=== PATIENT | male | born 1960 | race Caucasian/White ===

== ENCOUNTER 2023-01-12 17:20 | Inpatient (IN) ==
[2023-01-12] MEDS ORDERED: Acetaminophen IV 1 GM/100ML 1,000 MG/100 ML BAG IV ONE (18:00)
[2023-01-12] MEDS ORDERED: Azithromycin 500 mg/250 ml NS 500 MG/250 ML BAG IVPB ONE (18:31)
[2023-01-12] MEDS ORDERED: cefTRIAXone 1 gm/50 mL D5W 1 GM/50 ML BAG IV ONE (18:31)
[2023-01-12] MEDS ORDERED: NS 0.9% 1000 ml BAG 1,000 ML IV ONE (18:33)
[2023-01-12 18:42] LABS: Venous Bicarbonate HCO3 16.6 mmol/L (24-28)
[2023-01-12 18:43] LABS: ABS Lymphocytes 0.5 10^3/uL (1.0-4.8); ABS Monocytes 1.1 10^3/uL (0.0-1.1); ABS Nucleated RBC 0.01 10^3/ul; Hematocrit 43.6 % (38-53); Hemoglobin 14.7 g/dL (13.2-16.3); Lymphocyte % 5.1 %; Mean Corpuscular Hemoglobin 28.9 pg (27-33); Mean Corpuscular Hgb Conc 33.8 g/dL (31-36); Mean Corpuscular Volume 85.6 fL (80-97); Mean Platelet Volume 6.9 fL (7.5-11.2); Nucleated Red Blood Cells % 0.1 /100 WBC (0.0-0.4); Platelet Count 257 10^3/uL (150-450); Red Blood Count 5.09 10^6/uL (4.06-5.63); Red Cell Distribution Width 14.2 % (12-17); White Blood Count 10.6 10^3/uL (3.6-10.2)
[2023-01-12] MEDS ORDERED: Albuterol/Ipratropium NEB.SOL (2.5/0.5 MG) 3 ML NEB.SOLN INH ONE (18:55)
[2023-01-12 18:56] LABS: INR 1.29 (0.88-1.18)
[2023-01-12 19:02] LABS: Creatinine, Serum 1.03 mg/dL (0.67-1.17); Potassium 3.1 mmol/L (3.5-5.0)
[2023-01-12 19:03] LABS: Albumin 4.2 g/dL (3.2-5.2); Albumin/Globulin Ratio 1.1 (1-3); Calcium 9.1 mg/dL (8.6-10.3); Magnesium 2.2 mg/dL (1.9-2.7); Total Bilirubin 0.6 mg/dL (0.2-1.0); Total Protein 8.2 g/dL (6.4-8.9); eGFR CKD-EPI 82.1 (>60)
[2023-01-12] MEDS ORDERED: Furosemide 20 mg/2 ml IV VIAL IV SLOW PU ONE (19:09)
[2023-01-12] MEDS ORDERED: Iodixanol (CONTRAST) 320 MG/ML 100 ML SDV IV ONE (19:29)
[2023-01-12 19:43] LABS: PCO2 Arterial 22 mmHg (35-45); PO2 Arterial 82 mmHg (80-100)
[2023-01-12 20:26] LABS: High Sensitivity Troponin 1 Hr 64 pg/mL (<20)
[2023-01-12] MEDS ORDERED: Morphine 4 MG/ML VIAL (1 ml) IV ONE (21:03)
[2023-01-12] MEDS: Enoxaparin 40 MG/0.4 ML SYR SUBCUT SCH (21:41)
[2023-01-12] MEDS: KCL 20 MEQ/100 ML IVPREMIX 20 MEQ/100 ML BAG IV SCH (21:42)
[2023-01-12] MEDS: Morphine ER 30 mg TAB ** extended release PO SCH (21:46)
[2023-01-12 22:28] LABS: Osmolality Serum 295 mOsm/kg (275-295)
[2023-01-12 23:14] LABS: Urine Osmo 501 mOsm/kg (150-1150)
[2023-01-13] MEDS: KCL 20 MEQ/100 ML IVPREMIX 20 MEQ/100 ML BAG IV SCH (00:03)
[2023-01-13] MEDS ORDERED: Lactated Ringers 1000 ml BAG IV.FLUID IV ONE (01:23)
[2023-01-13] MEDS ORDERED: Dextrose 50% Syringe 50 ml 25 GM/50 ML SYRINGE IV PUSH PRN (02:50)
[2023-01-13] MEDS ORDERED: Ondansetron 4 mg VIAL 2 MG/ML 2 ml VIAL IV PRN (04:29)
[2023-01-13 05:39] LABS: Hematocrit 37.7 % (38-53); Hemoglobin 12.8 g/dL (13.2-16.3); Mean Corpuscular Hemoglobin 29.1 pg (27-33); Mean Corpuscular Volume 85.5 fL (80-97); Mean Platelet Volume 6.7 fL (7.5-11.2); Platelet Count 212 10^3/uL (150-450); Red Blood Count 4.41 10^6/uL (4.06-5.63); Red Cell Distribution Width 14.1 % (12-17); White Blood Count 9.9 10^3/uL (3.6-10.2)
[2023-01-13 05:57] LABS: Calcium 7.8 mg/dL (8.6-10.3); Creatinine, Serum 0.91 mg/dL (0.67-1.17); eGFR CKD-EPI 95.3 (>60)
[2023-01-13 05:59] LABS: Potassium 3.4 mmol/L (3.5-5.0)
[2023-01-13 06:39] LABS: ABS Lymphocytes 0.6 10^3/uL (1.0-4.8); ABS Monocytes 1.4 10^3/uL (0.0-1.1); ABS Neutrophils 7.8 10^3/uL (1.5-7.6); ABS Nucleated RBC 0.01 10^3/ul; Lymphocyte % 6.3 %; Nucleated Red Blood Cells % 0.1 /100 WBC (0.0-0.4)
[2023-01-13] MEDS: Empagliflozin 25 MG TAB PO SCH (08:17)
[2023-01-13] MEDS: Morphine ER 30 mg TAB ** extended release PO SCH ×3 (08:17→21:12)
[2023-01-13] MEDS ORDERED: Potassium Chlor 20 meq TAB.ER PO ONE ×2 (08:43→12:00)
[2023-01-13 10:07] LABS: Urine Creatinine Concentration 31.34 mg/dL (20.00-370.00)
[2023-01-13 10:15] LABS: Urine Appearance Clear; Urine Bilirubin Negative (Negative); Urine Blood 2+ (Negative); Urine Color Yellow; Urine Glucose 3+(>=500 mg/dL) (Negative); Urine Ketones 2+ (Negative); Urine Nitrite Negative (Negative); Urine Protein Negative (Negative); Urine Specific Gravity 1.026 (1.002-1.030); Urine Urobilinogen Negative (Negative)
[2023-01-13 10:31] LABS: Urine Bacteria 1+ (Absent); Urine Granular Casts Present (Absent); Urine Red Blood Cell 1+(3-5/hpf) (Absent); Urine Squamous Epithelial Cell Present (Absent); Urine White Blood Cell Absent (Absent)
[2023-01-13] MEDS ORDERED: Lactated Ringers 1000 ml BAG 1,000 ML IV ONE (13:58)
[2023-01-13] MEDS ORDERED: Sulfur Hexaflouride MICROSPHR 25 MG VIAL ONE (14:39)
[2023-01-13] MEDS: Morphine ORAL.SOLN 10 mg 2 mg/ml UDC 5 ml (10 mg) PO PRN (16:24)
[2023-01-13] MEDS: Azithromycin 500 mg/250 ml NS 500 MG/250 ML BAG IVPB SCH (18:32)
[2023-01-13] MEDS: cefTRIAXone 1 gm/50 mL D5W 1 GM/50 ML BAG IV SCH (21:11)
[2023-01-13] MEDS: Enoxaparin 40 MG/0.4 ML SYR SUBCUT SCH (21:12)
[2023-01-14 06:08] LABS: ABS Lymphocytes 0.5 10^3/uL (1.0-4.8); ABS Monocytes 1.2 10^3/uL (0.0-1.1); ABS Neutrophils 5.5 10^3/uL (1.5-7.6); ABS Nucleated RBC 0.01 10^3/ul; Hematocrit 39.4 % (38-53); Lymphocyte % 7.4 %; Mean Corpuscular Hemoglobin 28.7 pg (27-33); Mean Corpuscular Volume 87.1 fL (80-97); Mean Platelet Volume 6.8 fL (7.5-11.2); Nucleated Red Blood Cells % 0.1 /100 WBC (0.0-0.4); Platelet Count 201 10^3/uL (150-450); Red Blood Count 4.53 10^6/uL (4.06-5.63); Red Cell Distribution Width 14.4 % (12-17); White Blood Count 7.2 10^3/uL (3.6-10.2)
[2023-01-14 06:14] LABS: Calcium 8.2 mg/dL (8.6-10.3); Creatinine, Serum 0.75 mg/dL (0.67-1.17); Potassium 3.6 mmol/L (3.5-5.0)
[2023-01-14] MEDS: Morphine ER 30 mg TAB ** extended release PO SCH ×3 (08:12→20:31)
[2023-01-14] MEDS: Morphine ORAL.SOLN 10 mg 2 mg/ml UDC 5 ml (10 mg) PO PRN ×3 (08:21→21:22)
[2023-01-14] MEDS: Empagliflozin 25 MG TAB PO SCH (08:24)
[2023-01-14] MEDS: Azithromycin 500 mg/250 ml NS 500 MG/250 ML BAG IVPB SCH (17:48)
[2023-01-14] MEDS: cefTRIAXone 1 gm/50 mL D5W 1 GM/50 ML BAG IV SCH (20:28)
[2023-01-14] MEDS: Enoxaparin 40 MG/0.4 ML SYR SUBCUT SCH (20:32)
[2023-01-15 06:44] LABS: Hematocrit 41.7 % (38-53); Hemoglobin 14.1 g/dL (13.2-16.3); Mean Corpuscular Hemoglobin 28.9 pg (27-33); Mean Corpuscular Hgb Conc 33.7 g/dL (31-36); Mean Platelet Volume 6.7 fL (7.5-11.2); Platelet Count 253 10^3/uL (150-450); Red Blood Count 4.86 10^6/uL (4.06-5.63); Red Cell Distribution Width 14.5 % (12-17); White Blood Count 7.1 10^3/uL (3.6-10.2)
[2023-01-15 06:58] LABS: Calcium 8.6 mg/dL (8.6-10.3); Creatinine, Serum 0.71 mg/dL (0.67-1.17); Potassium 3.8 mmol/L (3.5-5.0); eGFR CKD-EPI 103.7 (>60)
[2023-01-15 07:42] LABS: ABS Lymphocytes 0.8 10^3/uL (1.0-4.8); ABS Monocytes 1.1 10^3/uL (0.0-1.1); ABS Neutrophils 5.2 10^3/uL (1.5-7.6); ABS Nucleated RBC 0.01 10^3/ul; Eosinophil % 0.1 %; Lymphocyte % 11.7 %; Nucleated Red Blood Cells % 0.1 /100 WBC (0.0-0.4)
[2023-01-15] MEDS: Morphine ER 30 mg TAB ** extended release PO SCH ×3 (09:57→21:39)
[2023-01-15] MEDS: Empagliflozin 25 MG TAB PO SCH (09:59)
[2023-01-15] MEDS: Morphine ORAL.SOLN 10 mg 2 mg/ml UDC 5 ml (10 mg) PO PRN ×2 (10:00→16:10)
[2023-01-15] MEDS: cefTRIAXone 1 gm/50 mL D5W 1 GM/50 ML BAG IV SCH (21:35)
[2023-01-15] MEDS: Enoxaparin 40 MG/0.4 ML SYR SUBCUT SCH (21:42)
[2023-01-16] MEDS: Morphine ORAL.SOLN 10 mg 2 mg/ml UDC 5 ml (10 mg) PO PRN ×3 (00:27→21:19)
[2023-01-16 06:06] LABS: Hematocrit 39.7 % (38-53); Hemoglobin 13.4 g/dL (13.2-16.3); Mean Corpuscular Hemoglobin 29.1 pg (27-33); Mean Corpuscular Hgb Conc 33.8 g/dL (31-36); Mean Platelet Volume 6.7 fL (7.5-11.2); Platelet Count 221 10^3/uL (150-450); Red Blood Count 4.62 10^6/uL (4.06-5.63); Red Cell Distribution Width 14.6 % (12-17); White Blood Count 6.5 10^3/uL (3.6-10.2)
[2023-01-16 06:23] LABS: Calcium 8.5 mg/dL (8.6-10.3); Creatinine, Serum 0.63 mg/dL (0.67-1.17); eGFR CKD-EPI 107.5 (>60)
[2023-01-16 07:54] LABS: ABS Monocytes 1.3 10^3/uL (0.0-1.1); ABS Neutrophils 4.2 10^3/uL (1.5-7.6); ABS Nucleated RBC 0.01 10^3/ul; Eosinophil % 0.2 %; Lymphocyte % 14.8 %; Nucleated Red Blood Cells % 0.2 /100 WBC (0.0-0.4)
[2023-01-16] MEDS: Morphine ER 30 mg TAB ** extended release PO SCH ×3 (08:38→21:01)
[2023-01-16] MEDS: Empagliflozin 25 MG TAB PO SCH (08:39)
[2023-01-16] MEDS ORDERED: Metoprolol Tartrate 5 mg VIAL 5 ml VIAL (1 mg/ml) IV ONE ×2 (11:35→21:17)
[2023-01-16] MEDS: cefTRIAXone 1 gm/50 mL D5W 1 GM/50 ML BAG IV SCH (21:00)
[2023-01-17 06:19] LABS: Hematocrit 41.4 % (38-53); Hemoglobin 13.8 g/dL (13.2-16.3); Mean Corpuscular Hemoglobin 28.9 pg (27-33); Mean Corpuscular Hgb Conc 33.5 g/dL (31-36); Mean Corpuscular Volume 86.2 fL (80-97); Mean Platelet Volume 6.9 fL (7.5-11.2); Platelet Count 247 10^3/uL (150-450); Red Cell Distribution Width 14.8 % (12-17)
[2023-01-17 06:20] LABS: Calcium 8.9 mg/dL (8.6-10.3); Magnesium 1.9 mg/dL (1.9-2.7); Potassium 4.1 mmol/L (3.5-5.0)
[2023-01-17 06:26] LABS: Creatinine, Serum 0.59 mg/dL (0.67-1.17); eGFR CKD-EPI 109.7 (>60)
[2023-01-17 06:39] LABS: ABS Lymphocytes 1.5 10^3/uL (1.0-4.8); ABS Neutrophils 4.4 10^3/uL (1.5-7.6); ABS Nucleated RBC 0.01 10^3/ul; Eosinophil % 0.5 %; Lymphocyte % 22.2 %; Nucleated Red Blood Cells % 0.1 /100 WBC (0.0-0.4)
[2023-01-17 06:40] LABS: RBC Morphology Normal (Normal)
[2023-01-17] MEDS: Morphine ORAL.SOLN 10 mg 2 mg/ml UDC 5 ml (10 mg) PO PRN (08:05)
[2023-01-17] MEDS: Empagliflozin 25 MG TAB PO SCH (08:06)
[2023-01-17] MEDS: Morphine ER 30 mg TAB ** extended release PO SCH ×3 (08:06→21:37)
[2023-01-17] MEDS ORDERED: Metoprolol Tartrate 5 mg VIAL 5 ml VIAL (1 mg/ml) IV ONE (10:52)
[2023-01-17] MEDS: Digoxin IV 0.5 MG/2 ML AMP (0.25 MG/ML) IV SLOW PU SCH ×2 (18:00→23:52)
[2023-01-17] MEDS: Latanoprost 0.005% 2.5 ml BTL BOTH EYES SCH (21:37)
[2023-01-17] MEDS: CMCS:Dorzolamide/Timolol OPTH (NF) 10 ML BOT BOTH EYES SCH (21:39)
[2023-01-17] MEDS: PTO:Brimonidine P 0.15%(NF) OPH SOL 5 ML BTL BOTH EYES SCH (21:42)
[2023-01-18] MEDS: Digoxin IV 0.5 MG/2 ML AMP (0.25 MG/ML) IV SLOW PU SCH (05:27)
[2023-01-18 06:39] LABS: Hematocrit 38.9 % (38-53); Hemoglobin 12.8 g/dL (13.2-16.3); Mean Corpuscular Hemoglobin 28.7 pg (27-33); Mean Corpuscular Hgb Conc 32.9 g/dL (31-36); Mean Corpuscular Volume 87.2 fL (80-97); Mean Platelet Volume 6.7 fL (7.5-11.2); Platelet Count 260 10^3/uL (150-450); Red Blood Count 4.46 10^6/uL (4.06-5.63); Red Cell Distribution Width 14.4 % (12-17); White Blood Count 7.4 10^3/uL (3.6-10.2)
[2023-01-18 06:47] LABS: Calcium 8.5 mg/dL (8.6-10.3); Creatinine, Serum 0.38 mg/dL (0.67-1.17); Potassium 4.2 mmol/L (3.5-5.0); eGFR CKD-EPI 125.3 (>60)
[2023-01-18] MEDS: CMCS:Dorzolamide/Timolol OPTH (NF) 10 ML BOT BOTH EYES SCH ×2 (08:11→20:55)
[2023-01-18] MEDS: Empagliflozin 25 MG TAB PO SCH (08:12)
[2023-01-18] MEDS: PTO:Brimonidine P 0.15%(NF) OPH SOL 5 ML BTL BOTH EYES SCH ×3 (08:12→20:59)
[2023-01-18] MEDS: Morphine ER 30 mg TAB ** extended release PO SCH ×3 (10:16→20:57)
[2023-01-18] MEDS: Morphine ORAL.SOLN 10 mg 2 mg/ml UDC 5 ml (10 mg) PO PRN ×2 (10:17→16:26)
[2023-01-18] MEDS ORDERED: Digoxin IV 0.5 MG/2 ML AMP (0.25 MG/ML) IV SLOW PU ONE (13:13)
[2023-01-18] MEDS ORDERED: Digoxin IV 0.5 MG/2 ML AMP (0.25 MG/ML) ONE (13:17)
[2023-01-18 16:52] LABS: C Reactive Protein 70.77 mg/L (<8.01)
[2023-01-18] MEDS ORDERED: Zosyn per Pharmacy NOTE FOLLOW UP SCH (17:00)
[2023-01-18] MEDS ORDERED: ZOSYN 3.375 GM x ONE DOSE over 30 miuntes IV (17:00)
[2023-01-18] MEDS: Latanoprost 0.005% 2.5 ml BTL BOTH EYES SCH (21:00)
[2023-01-18] MEDS: ZOSYN 3.375 GM Q8H per EXTENDED INFUSION IV SCH (22:36)
[2023-01-19] MEDS: ZOSYN 3.375 GM Q8H per EXTENDED INFUSION IV SCH ×3 (06:15→22:01)
[2023-01-19 06:53] LABS: Hematocrit 40.1 % (38-53); Hemoglobin 13.5 g/dL (13.2-16.3); Mean Corpuscular Hemoglobin 29.1 pg (27-33); Mean Corpuscular Hgb Conc 33.6 g/dL (31-36); Mean Corpuscular Volume 86.5 fL (80-97); Mean Platelet Volume 6.5 fL (7.5-11.2); Platelet Count 299 10^3/uL (150-450); Red Blood Count 4.64 10^6/uL (4.06-5.63); Red Cell Distribution Width 14.2 % (12-17); White Blood Count 7.5 10^3/uL (3.6-10.2)
[2023-01-19 07:09] LABS: Calcium 8.9 mg/dL (8.6-10.3); Creatinine, Serum 0.52 mg/dL (0.67-1.17); Digoxin 0.6 ng/ml (0.8-2.0); Magnesium 1.8 mg/dL (1.9-2.7); Potassium 4.3 mmol/L (3.5-5.0)
[2023-01-19] MEDS ORDERED: Magnesium Sulfate 2 gm BAG 2 GM/50 ML BAG IVPB ONE (07:18)
[2023-01-19 07:52] LABS: ABS Eosinophils 0.1 10^3/uL (0.0-0.5); ABS Lymphocytes 1.5 10^3/uL (1.0-4.8); ABS Monocytes 0.7 10^3/uL (0.0-1.1); ABS Neutrophils 5.1 10^3/uL (1.5-7.6); ABS Nucleated RBC 0.02 10^3/ul; Eosinophil % 1.9 %; Lymphocyte % 20.4 %; Nucleated Red Blood Cells % 0.3 /100 WBC (0.0-0.4)
[2023-01-19] MEDS: Morphine ER 30 mg TAB ** extended release PO SCH ×3 (09:53→21:37)
[2023-01-19] MEDS: Empagliflozin 25 MG TAB PO SCH (10:07)
[2023-01-19] MEDS: PTO:Brimonidine P 0.15%(NF) OPH SOL 5 ML BTL BOTH EYES SCH ×3 (10:07→21:40)
[2023-01-19] MEDS: CMCS:Dorzolamide/Timolol OPTH (NF) 10 ML BOT BOTH EYES SCH ×2 (10:12→21:53)
[2023-01-19] MEDS: Morphine ORAL.SOLN 10 mg 2 mg/ml UDC 5 ml (10 mg) PO PRN (15:23)
[2023-01-19] MEDS: Latanoprost 0.005% 2.5 ml BTL BOTH EYES SCH (21:31)
[2023-01-20] MEDS: ZOSYN 3.375 GM Q8H per EXTENDED INFUSION IV SCH ×2 (06:02→13:55)
[2023-01-20 06:12] LABS: Hematocrit 40.4 % (38-53); Hemoglobin 13.6 g/dL (13.2-16.3); Mean Corpuscular Hemoglobin 28.9 pg (27-33); Mean Corpuscular Hgb Conc 33.7 g/dL (31-36); Mean Corpuscular Volume 85.9 fL (80-97); Mean Platelet Volume 6.5 fL (7.5-11.2); Platelet Count 280 10^3/uL (150-450); Red Cell Distribution Width 14.6 % (12-17); White Blood Count 6.7 10^3/uL (3.6-10.2)
[2023-01-20 06:23] LABS: Calcium 8.8 mg/dL (8.6-10.3); Potassium 4.2 mmol/L (3.5-5.0)
[2023-01-20 06:29] LABS: Creatinine, Serum 0.54 mg/dL (0.67-1.17); eGFR CKD-EPI 112.7 (>60)
[2023-01-20 06:48] LABS: ABS Eosinophils 0.1 10^3/uL (0.0-0.5); ABS Lymphocytes 1.5 10^3/uL (1.0-4.8); ABS Monocytes 0.8 10^3/uL (0.0-1.1); ABS Neutrophils 4.3 10^3/uL (1.5-7.6); ABS Nucleated RBC 0.02 10^3/ul; Eosinophil % 1.9 %; Lymphocyte % 22.6 %; Nucleated Red Blood Cells % 0.2 /100 WBC (0.0-0.4)
[2023-01-20] MEDS: PTO:Brimonidine P 0.15%(NF) OPH SOL 5 ML BTL BOTH EYES SCH ×2 (09:05→13:55)
[2023-01-20] MEDS: CMCS:Dorzolamide/Timolol OPTH (NF) 10 ML BOT BOTH EYES SCH (09:05)
[2023-01-20] MEDS: Empagliflozin 25 MG TAB PO SCH (09:05)
[2023-01-20] MEDS: Morphine ER 30 mg TAB ** extended release PO SCH ×2 (09:06→13:55)
[2023-01-20] MEDS: Morphine ORAL.SOLN 10 mg 2 mg/ml UDC 5 ml (10 mg) PO PRN ×2 (10:25→15:57)
[2023-01-20 13:38] VITALS: BP 104/63
== END 2023-01-20 16:50 | disposition home or self-care (01) | DRG 871 ==
LOC: ED 17:20 → SUATTDRO 20:39 → EDHOLD 20:39 → MED 01-13 13:25
PROVIDERS: ADMIT Internal Medicine; ATTEND Internal Medicine